=== PATIENT | female | born 1965 | race Caucasian/White ===

== ENCOUNTER → 2025-09-15 | Outpatient (CLI) | payer OTHER, SELFPAY ==
--- NOTE | 2025-09-15 13:44 | CT_ITS ---
PROCEDURE: EXTREMITY LOWER WITHOUT CONTRA 09/15/2025 REASON FOR EXAM: PRE OP WASC TECHNIQUE: Procedure Code: CTELWO Modality: CT Procedure: CT MURPHY protocol right knee. Coronal and Sagittal reconstruction series were provided. One or more dose reduction techniques were used (e.g., Automated exposure control, adjustment of the mA and/or kV according to patient size, use of iterative reconstruction technique). RADIATION DOSE SUMMARY: DLP: 1629.12 MGycm COMPARISON: None provided. FINDINGS: An intrauterine device is in place. Mild degenerative changes are seen of the visualized right sacroiliac joint. The right hip demonstrates [id number]-[id number] degenerative changes, with joint narrowing most prominent medially. No evidence of femoral head osteonecrosis. The right knee demonstrates a small joint effusion. Tricompartmental right knee degenerative changes are seen, including moderately severe joint narrowing of the patellofemoral compartment and severe joint narrowing medially. Mild lateral subluxation of the tibia with respect to the femur is also noted. No fracture site is seen. Mild degenerative changes are seen of the right ankle and right midfoot. Mild posterior and moderate inferior calcaneal spurring is noted. CT/Extremity Lower without Contra IMPRESSION: Successful MURPHY protocol CT performed before planned right knee surgery. Degenerative changes as described. Reading Location: [id number]
== END | disposition home or self-care (01) ==
LOC: CT 13:42
PROVIDERS: PCP Family Medicine; Referring Provider Orthopaedic Surgery; Visit Provider Orthopaedic Surgery
DX: M17.11 Unilateral primary osteoarthritis, right knee (principal)
CPT/HCPCS: 73700